=== PATIENT | female | born 1955 | race Caucasian/White ===

== ENCOUNTER → 2018-10-19 | Outpatient (CLI) | payer MEDICARE, OTHER | END | disposition home or self-care (01) | LOC: PCVCCLINIC 14:00 | PROVIDERS: ATTEND Internal Medicine Cardiovascular Disease | DX: R00.2 Palpitations (principal); R07.9 Chest pain, unspecified; E78.5 Hyperlipidemia, unspecified; F41.9 Anxiety disorder, unspecified; E78.00 Pure hypercholesterolemia, unspecified; K21.9 Gastro-esophageal reflux disease without esophagitis; Z82.49 Family history of ischemic heart disease and other diseases of the circulatory system; Z88.8 Allergy status to other drugs, medicaments and biological substances; Z79.899 Other long term (current) drug therapy | CPT/HCPCS: 36415; 80061; 93005; G0463 ==

== ENCOUNTER → 2018-10-26 | Outpatient (CLI) | payer MEDICARE, OTHER ==
--- NOTE | 2018-10-27 12:55 | PCVCIMAG ---
APPROVED REPORT Study performed: 10/26/2018 15:47:29 Exam: Stress Echocardiogram Indication: Chest pain Patient Location: Echo lab Stress Nurse: Dorota Terrazas RN Room #: 2 Status: routine Ht: 5 ft 4 in HR: 54 bpm BP: 126/84 mmHg Rhythm: NSR Medical History Medical History: Hyperlipidemia, No history of CAD Medications: bystolic Cardiac Risk Factors: Hyperlipidemia Pretest Chest Pain Characteristics: No chest pain Exercise History: Indeterminate Procedure The patient underwent an Exercise Stress Test using the Itz Protocol. Blood pressure, heart rate, and EKG were monitored. An Echocardiogram was performed by energy conservation technician in four stages in quad fashion. At peak stress, four selected images were obtained and placed side by side with resting images for comparison. Stress Test Details Stress Test: Exercise stress testing was performed using a Itz protocol. HR Resting HR: 54 bpmMax Heart Rate (APMHR): 155 bpm Max HR Achieved: 133 bpmTarget HR (85% APMHR): 131 bpm % of APMHR: 85 Recovery HR: 73 bpm HR response to stress: Normal HR response to stress BP Resting BP: 126/84 mmHg Max BP: 166/84 mmHg Recovery BP: 112/78 mmHg BP response to stress: Normal blood pressure response to stress. ECG Resting ECG: Sinus Rhythm Stress ECG: Sinus Rhythm, NSSTT changes ST Change: Non-ischemic Arrhythmia: Frequent PVCs,PACs Recovery ECG: Sinus Rhythm, NSSTT changes Recovery ST Change: Non-ischemic Recovery Arrhythmia: PVCs,PACs Clinical Reason for Termination: Maximal effort Stress Symptoms: Chest pain, Dyspnea Exercise duration: 6 min 55 sec Highest Stage Achieved: Stage 3: 3.4 mph at 14% grade. Exercise capacity: 908 METs Overall Exercise Capacity for Age: Average Scale: Sedentary Angina Score: Non-Limiting No complications. Stress ECG Conclusion The patient exercised according to the ITZ protocol for 6:55 mins; achieving a work level of 9.8 METS. The resting heart rate of 54 bpm [place] to a maximum heart rate of 133 bpm. This value represent 85% of the maximal, age-predicted heart rate. The resting blood pressure of 126/84 mmHg, [place] to a maximum blood pressure of 166/84 mmHg. The exercise test was stopped due to fatigue and dyspnea. Pre-Stress Echo The resting Echocardiogram showed normal left ventricular contractility with an estimated Ejection Fraction of about 55-60%. Normal wall motion in all segments on baseline images. Post-Stress Echo The stress Echocardiogram showed normal left ventricular contractility with an estimated Ejection Fraction of about 65-70%. Normal augmentation of wall motion in all segments on post stress images. Clinical No clinical or ECG evidence for ischemia. Conclusion Clinical Response: Equivocal Exercise Capacity: Average Stress ECG Response: Non-ischemic Stress Echo Images: Non-ischemic No EKG or echocardiographic evidence for ischemia. No echocardiographic evidence for exercise induced ischemia. Normal stress echocardiogram with maximal exercise stress. <Conclusion> No EKG or echocardiographic evidence for ischemia. No echocardiographic evidence for exercise induced ischemia. Normal stress echocardiogram with maximal exercise stress.
== END | disposition home or self-care (01) ==
LOC: PCVCIMAG 15:40
PROVIDERS: ATTEND Internal Medicine Cardiovascular Disease
DX: R07.9 Chest pain, unspecified (principal); I47.1 Supraventricular tachycardia; R53.82 Chronic fatigue, unspecified; Z86.718 Personal history of other venous thrombosis and embolism
CPT/HCPCS: 93325; 93351

== ENCOUNTER → 2019-05-29 | Outpatient (CLI) | payer MEDICARE, OTHER | END | disposition home or self-care (01) | LOC: PCVCCLINIC 15:03 | PROVIDERS: ATTEND Internal Medicine Cardiovascular Disease | DX: I47.1 Supraventricular tachycardia (principal); E78.5 Hyperlipidemia, unspecified; F43.10 Post-traumatic stress disorder, unspecified; K21.0 Gastro-esophageal reflux disease with esophagitis; R93.1 Abnormal findings on diagnostic imaging of heart and coronary circulation; Z86.718 Personal history of other venous thrombosis and embolism; Z90.49 Acquired absence of other specified parts of digestive tract; Z96.659 Presence of unspecified artificial knee joint; Z80.2 Family history of malignant neoplasm of other respiratory and intrathoracic organs; Z79.899 Other long term (current) drug therapy; Z88.8 Allergy status to other drugs, medicaments and biological substances | CPT/HCPCS: 36415; 80061; 93005; G0463 ==